=== PATIENT | female | born 1960 | race Caucasian/White ===

== ENCOUNTER 2016-04-30 13:17 | Inpatient (IN) | payer OTHER ==
[~2016-04-30] VITALS: Ht 162.6 cm; Wt 55.5 kg
[2016-04-30] VITALS (9 sets, daily range): BP systolic 118–135; BP diastolic 70–79; PULSE 78–109; RESP 16–24; O2SAT 94–99
[~2016-04-30 13:17] MED LIST: ADV250INH IH; ALBU8.5H4 IH; DOCU250C7 PO; IPRA30SP2 INH; LEV250 PO; NIC7 TD; PHE25 PO; PRE10 PO; PRE20 PO; SIN10 PO; TYLENOL W CODEINE PO
--- NOTE | 2016-04-30 14:40 | ED.REPORT ---
HPI-URI / Cough / Cold Date of Service Apr 30, 2016 ED Provider: Ramila Avila History of Present Illness: coughing, sob statrted last saturday. mid sternal pain with drinking. using tylenol, using breathing treatments. denies breathing issues had breathing meds from previous pneumonia. primary care is paulino at [facility]. 08/04 Nursing Notes Stated Complaint: SOB/PAIN IN CHEST Chief Complaint: Chest Pain Allergies: Coded Allergies: Cephalosporins (Verified Allergy, Intermediate, Rash,Itching,, 08/05/15) ibuprofen (Verified Allergy, Unknown, Swelling, 05/09/15) Scheduled Aspirin (Aspirin) 81 Mg Tablet 81 MG PO DAILY Nicotine (Nicoderm Cq 7 mg/24 hr) 1 Each Patch.td24 1 EACH TD DAILY Scheduled PRN Acetaminophen (Acetaminophen) 325 Mg Tablet 325-650 MG PO Q4H PRN PRN For Fever Ipratropium/Albuterol Sulfate (Iprat-Albut 0.5-3(2.5) mg/3 mL Inhalant Soln) 3 Ml Ampul.neb 3 ML IH Q6 PRN PRN For Shortness of Breath General Time Seen by MD: 14:31 Chief Complaint Cough, productive... (Yellow) Hx Obtained From: Patient Onset Occurred: 5 days ago Symptom Duration: Since onset Quality: Burning Past Medical History Past Medical History Notes: COPD Past Medical History Arthritis Anxiety Chronic neck pain Reports: COPD, Denies: Asthma, Diabetes mellitus Past Surgical History R hand surgery Reports: Appendectomy Reports: Tubal ligation Smoking History Current Every Day Smoker (7 cig a day for 30 years) Social History Alcohol Use: Denies alcohol use Drug Use: THC Occupation living with boyfriend, work at [employer] on medical leave at present for hand injury and neck pain 04/30/2016 Ambulatory Status Independent Review of Systems Basic Review of Systems : No dysuria, No frequency Hematologic: No bleeding, No bruising Psychiatric: Normal thought content Physical Exam Initial Vital Signs Vital Signs (First) Date Time Temp Pulse Resp B/P Pulse Ox O2 Delivery O2 Flow Rate FiO2 04/30/16 13:21 36.2 107 20 135/79 99 04/30/16 15:17 Room Air Initial VS: Reviewed, Vital signs normal Head / Eyes: Atraumatic, Normocephalic, PERRL Neck: Supple, Non-tender, Full range of motion Cardiovascular: Regular rate & rhythm, Heart sounds normal, Intact distal pulses Abdomen / GI: Soft, Non-tender, No guarding, No rebound, No distention Back: No CVA tenderness Lymphatic: No lymphadenopathy Extremities: Vascular intact, Neuro intact, No swelling, No tenderness Skin: Warm, Dry, No cyanosis Neurologic: Alert, Oriented, Nonfocal Psychiatric: Mood/affect normal, Behavior normal, Normal thought content General/Constitutional: Awake, Alert Distress / Hydration: Positive: Distress moderate Appearance / Presentation: Positive: Appears older than age ENT: Atraumatic, Airway patent, Mucous membranes moist, Pharynx NL Wheezing / Retractions: Positive: Wheeze insp/exp diffuse, Wheezing moderate Head / Eyes: Atraumatic, Normocephalic, PERRL, EOMI Cardiovascular: Heart rate NL, Regular rhythm, Heart sounds NL, No gallop Abdomen: Atraumatic, Soft, Non-tender, McBurney's non-tender Interpretation & Diagnostics Lab Results Interpretation Result Diagram: 04/30/16 1435 04/30/16 1435 Test 04/30/16 14:35 White Blood Count 11.3th/mm3 (3.8-10.1) Red Blood Count 4.62mil/mm3 (3.90-5.20) Hemoglobin 14.1g/dL (12.0-15.6) Hematocrit 42.2% (35.0-46.0) Mean Corpuscular Volume 91.3fL (81-100) Mean Corpuscular Hemoglobin 30.5pg (27.0-35.0) Mean Corpuscular Hemoglobin Concent 33.4% (32.0-37.0) Red Cell Distribution Width 13.5% (12.3-15.4) Platelet Count 227bil/L (150-400) Neutrophils (%) (Auto) 65.8% (40-74) Lymphocytes (%) (Auto) 23.2% (14-46) Monocytes (%) (Auto) 9.9% (4-12) Eosinophils (%) (Auto) 0.4% (0-5) Basophils (%) (Auto) 0.4% (0-3) Sodium Level 137mEq/L (134-144) Potassium Level 3.5mEq/L (3.5-5.2) Chloride Level 99mEq/L (97-108) Carbon Dioxide Level 23mmol/L (18-29) Blood Urea Nitrogen 10mg/dL (6-24) Creatinine 0.61mg/dL (0.57-1.00) Estimat Glomerular Filtration Rate 146mL/min (>59) Glucose Level 85mg/dL (60-99) Calcium Level 9.0mg/dL (8.5-10.1) Total Bilirubin 0.2mg/dL (0.0-1.2) Aspartate Amino Transf (AST/SGOT) 16U/L (0-50) Alanine Aminotransferase (ALT/SGPT) 14U/L (0-32) Alkaline Phosphatase 98U/L (25-150) Troponin T < 0.010ug/L (0.0-0.011) Pro-B-Type Natriuretic Peptide 71.26pg/mL (0-249) Total Protein 7.7g/dL (6.4-8.4) Albumin 4.1g/dL (3.4-5.0) Hold Lemus Top Tube Received (Received) X-Ray Chest Interpretation Chest Xray Interpretation: INDICATIONS: SHORT OF BREATH TECHNIQUE: 2 views of the chest were acquired. COMPARISON: [facility], , CHEST 1VW (PORTABLE), 09/04/2014, 22:49. [facility], CHEST 2VW, 08/20/2013, 21:02. [facility], , CHEST 2VW, 05/28/2011, 0:48. FINDINGS: Surgical changes and devices: None. Lungs and pleura: No pleural effusions or pneumothorax. Lungs are clear. Mediastinum: Mediastinal contours are normal. Heart size is normal. Bones and chest wall: No suspicious bony abnormalities. Soft tissues appear unremarkable. IMPRESSION: No acute cardiopulmonary disease process. Re-Eval/Medical Decision Med Decision/Clinical Course Med Decision/Clinical Course: 55 year old female presents to the ER for evualation of SOB with chest pain. Patient denies any underlying respiratory issues but review of her chart indicates she has a dx of COPD. Exam indicates extensive wheezing with minimal air movement. Chest x-ray is negative for infection. Patient has had 2 duo nebs and a repeat one, has had 60 mg po of prednisone. Minimally improvement if any. Patient would benefit from admission. Discussed with Dr. Grijalva. Care of patient turned over to Dr. Grijalva for admission Re-Evaluation/Progress : Time of Eval: 17:45 Re-Evaluation/Progress Note: Patient rechecked by Dr. Grijalva. Symptoms began five days ago. The patient stopped smoking six days ago. On exam the patient is still wheezing heavily. Discussed with patient x-ray and lab results, diagnosis, and plan for additional breathing treatments and probable admit. Patient agrees with plan for care and all questions were addressed. Consultation : Referral / Consult Name: Parish Zuluaga MD Consulted With: Hospitalist Call Returned at: 18:16 Job Placement Specialist: Agrees with eval, Agrees with plan, Accepts admit Note: Discussed patient's case. Counseled Regarding: Diagnosis, Lab results, Need for admission Discharge & Departure Impression: Primary Impression: COPD exacerbation Disposition: ADMITTED TO HOSPITAL Discharge Condition All VS Reviewed: Yes Condition: Stable Referrals: BENJAMÍN DUBON MD (PCP) EDSupervising Provider for APC: Donny Grijalva MD Attestation Portions of this note were transcribed by Chiara Urias. I, Dr. Grijalva, personally performed the history, physical exam, and medical decision-making; I reviewed and confirmed the accuracy of the information in the transcribed note. Signed by: Bill Simpson, 04/30/2016, 18:20 copies to: BENJAMÍN DUBON MD, Sue ARNP Apr 30, 2016 14:40 CHIRAA URIAS Apr 30, 2016 17:49
[2016-04-30 14:47] LABS: BASOPHILS % (AUTO) 0.4 % (0-3); EOSINOPHILS % (AUTO) 0.4 % (0-5); MONOCYTES % (AUTO) 9.9 % (4-12); Mean Corpuscular Hemoglobin 30.5 pg (27.0-35.0); Mean Corpuscular Volume 91.3 fL (81-100); NEUTROPHILS % (AUTO) 65.8 % (40-74); Platelet Count 227 bil/L (150-400)
[2016-04-30] MEDS ORDERED: Albuterol-Ipratropium 3 mL Inhalation Solution NEB ONE ×2 (15:10→16:25)
[2016-04-30] MEDS ORDERED: predniSONE 20 mg Tablet PO ONE (15:10)
[2016-04-30 15:14] LABS: TROPONIN T < 0.010 ug/L (0.0-0.011)
--- NOTE | 2016-04-30 15:20 | DRSVH ---
PROCEDURE: X-RAY CHEST, TWO VIEWS ([id number]) INDICATIONS: SHORT OF BREATH TECHNIQUE: 2 views of the chest were acquired. COMPARISON: [facility], , CHEST 1VW (PORTABLE), 09/04/2014, 22:49. [facility], CR, CHEST 2VW, 08/20/2013, 21:02. [facility], CR, CHEST 2VW, 05/28/2011, 0:48. FINDINGS: Surgical changes and devices: None. Lungs and pleura: No pleural effusions or pneumothorax. Lungs are clear. Mediastinum: Mediastinal contours are normal. Heart size is normal. Bones and chest wall: No suspicious bony abnormalities. Soft tissues appear unremarkable. IMPRESSION: No acute cardiopulmonary disease process. Dictated by: Nisa Leblanc MD, PhD on 04/30/2016 at 15:13 Approved by: Nisa Leblanc MD, PhD on 04/30/2016 at 15:14
[2016-04-30] MEDS ORDERED: Magnesium Sulf 2 Gm/50mL Water 2 GM in IV Premix 1 EACH IV ONE (17:40)
[2016-04-30] MEDS ORDERED: Albuterol 2.5 mg/3 mL Inhalation Solution NEB ONE (17:40)
[2016-04-30] MEDS ORDERED: Azithromycin Inj 500 MG in Dextrose 5% w/Vial Mate 250 ML IV ONE (17:45)
[2016-04-30] MEDS ORDERED: Alum-Mag Hydrox-Simeth 30 mL Suspension PO PRN (18:30)
[2016-04-30] MEDS ORDERED: IPRA3AMP IH (19:18)
[2016-04-30] MEDS ORDERED: ALBU8.5H2 INHALATION (19:19)
[2016-04-30] MEDS ORDERED: FLUT1DIS5 IH (19:19)
[2016-04-30] MEDS ORDERED: ATRINH INH (19:21)
[2016-04-30] MEDS ORDERED: NICO1PAT39 TD (19:21)
[2016-04-30] MEDS ORDERED: MONT10TA23 PO (19:21)
[2016-04-30] MEDS ORDERED: ASPI325T32 PO (19:22)
[2016-04-30] MEDS ORDERED: ACET325T51 PO (19:22)
[2016-04-30] MEDS ORDERED: ASPI-973 PO (20:08)
[2016-04-30] MEDS: Albuterol-Ipratropium 3 mL Inhalation Solution NEB PRN (20:20)
--- NOTE | 2016-04-30 22:55 | PCM.HPMED ---
Subjective Date of Service Apr 30, 2016 Primary Provider: Admitting Physician: Primary Care Physician: Jamie Vanegas MD Attending Physician: Admit Status: From the Emergency Department, Full Admit, Remote Telemetry Chief Complaint: Shortness of breathe with coughing History of Present Illness: Latricia Son is a 55 yo smoker with COPD who presents to [facility] emergency department with complaints of coughing and shortness of breathe Patient reported the shortness of breathe started last Saturday but progressive getting worst in the last few days. Associated symptoms includes mid sternal pain (exacerbated with drinking) and a productive cough of yellow sputum. No fever or chills reported. She has a nebulizer machine but did not have any Albuterol. She continues to smoke although she is cutting down significantly. No sick contacts at home and no recent travel Review of Systems: Pertinent positives as noted in HPI. All other systems were reviewed and are negative Allergies Coded Allergies: Cephalosporins (Verified Allergy, Intermediate, Rash,Itching,, 08/05/15) ibuprofen (Verified Allergy, Unknown, Swelling, 05/09/15) Home Medications None reported PMH Arthritis Anxiety Chronic neck pain COPD . Surgical History R hand surgery Appendectomy Tubal ligation Family History No history of premature coronary disease Social History Hx Alcohol Use: No Hx Substance Use: Yes (marijuana) Hx Tobacco Use: Yes (4-5 cigs/day) Smoking Status: Current Every Day Smoker Living Arrangement: with Friends/Roommate Exam Vital Signs Vital Sign - Last Date Time Temp Pulse Resp B/P Pulse Ox O2 Delivery O2 Flow Rate FiO2 04/30/16 17:49 100 24 94 Room Air 04/30/16 15:17 118/70 04/30/16 13:21 36.2 Exam General: Alert, Oriented X3, Cooperative, No acute Distress. Talking in full sentences Eyes: PERRLA, Scleral Anicteric Mouth: Mouth Normal, Mucous Membranes Moist/[place] Neck: Supple, no Thyromegaly, trachea central. Chest & Lungs: decreased breathe sounds with some wheeze Cardiovascular: Normal S1, Normal S2, No Murmurs/Rubs/Gallops, Regular Rate/ Rhythm, (No JVD, no peripheral edema) Pulses: Radial (present and equal), Dorsalis Pedi (present and equal) Abdomen: Soft, Non-tender, Non-distended, Normoactive bowel tones. Musculoskeletal: Unremarkable. Normal range of motion, no swollen or erythematous joints Extremities: No edema, no cyanosis, no clubbing. Skin: No rashes. Warm and dry, no erythematous areas Neurological: Grossly neurologically intact, Normal Speech, Sensation Intact Lymphatic: Lymph nodes Cervical and Axillary not palpable. Lab and Diagnostics Labs Laboratory Tests Test 04/30/16 14:35 White Blood Count 11.3th/mm3 (3.8-10.1) Red Blood Count 4.62mil/mm3 (3.90-5.20) Hemoglobin 14.1g/dL (12.0-15.6) Hematocrit 42.2% (35.0-46.0) Mean Corpuscular Volume 91.3fL (81-100) Mean Corpuscular Hemoglobin 30.5pg (27.0-35.0) Mean Corpuscular Hemoglobin Concent 33.4% (32.0-37.0) Red Cell Distribution Width 13.5% (12.3-15.4) Platelet Count 227bil/L (150-400) Neutrophils (%) (Auto) 65.8% (40-74) Lymphocytes (%) (Auto) 23.2% (14-46) Monocytes (%) (Auto) 9.9% (4-12) Eosinophils (%) (Auto) 0.4% (0-5) Basophils (%) (Auto) 0.4% (0-3) Sodium Level 137mEq/L (134-144) Potassium Level 3.5mEq/L (3.5-5.2) Chloride Level 99mEq/L (97-108) Carbon Dioxide Level 23mmol/L (18-29) Blood Urea Nitrogen 10mg/dL (6-24) Creatinine 0.61mg/dL (0.57-1.00) Estimat Glomerular Filtration Rate 146mL/min (>59) Glucose Level 85mg/dL (60-99) Calcium Level 9.0mg/dL (8.5-10.1) Total Bilirubin 0.2mg/dL (0.0-1.2) Aspartate Amino Transf (AST/SGOT) 16U/L (0-50) Alanine Aminotransferase (ALT/SGPT) 14U/L (0-32) Alkaline Phosphatase 98U/L (25-150) Troponin T < 0.010ug/L (0.0-0.011) Pro-B-Type Natriuretic Peptide 71.26pg/mL (0-249) Total Protein 7.7g/dL (6.4-8.4) Albumin 4.1g/dL (3.4-5.0) Hold Lemus Top Tube Received (Received) Result Diagram: 04/30/16 1435 04/30/16 1435 X-Rays, CTs and MRIs X-RAY CHEST, TWO VIEWS 04/30/16 IMPRESSION: No acute cardiopulmonary disease process. Dictated by: Nisa Leblanc MD, PhD on 04/30/2016 at 15:13 Approved by: Nisa Leblanc MD, PhD on 04/30/2016 at 15:14 Assessment & Plan Latricia Son is a 55 yo smoker with COPD who presents to [facility] emergency department with complaints of coughing and shortness of breathe 1. Acute COPD exacerbation. Present on admission. Under therapy with persistent symptoms Likely triggered by a viral respiratory infection. Also continued smoking causes continued damage to lungs. Differential diagnosis includes Pulmonary embolism but less likely with low Wells score. - continue DuoNeb PRN, need prescription for rescue inhaler prior to discharge - steroids: tapered to Prednisone 40 mg daily - continue Azithromycin PO - counseled to stop smoking - need Pulmonary follow up and Pulmonary function testing as outpatient 2. Nicotine dependence Cessation discussed and encouraged - Nicotine patch ordered - Acetaminophen as needed for mild pain/fever/headache - Bowel regimen as needed - Antiemetic as needed Patient admitted under inpatient status with expected length of stay > 2 midnights for severity of present symptoms, complexities of treatment plan and risk for adverse event . Resuscitation Status: CPR: Attempt Resuscitation Parish Zuluaga MD Apr 30, 2016 18:30
[2016-05-01] VITALS (11 sets, daily range): BP systolic 112–133; BP diastolic 67–82; PULSE 80–120; RESP 16–20; O2SAT 90–97
[2016-05-01] MEDS: Albuterol-Ipratropium 3 mL Inhalation Solution NEB PRN ×4 (00:01→13:43)
[2016-05-01] MEDS: Heparin 5,000 Unit/mL Inj SUBQ SCH ×3 (01:25→15:30)
--- NOTE | 2016-05-01 03:56 | NUR ---
Admit: pt arrived to room 3031 around 1954 from ED via stretcher; significant other at bedside. Pt ambulated self to bed. RA, tele placed, AOx3, no s/s of resp or cardiac distress. Nicotine patch placed on R shoulder. Admit completed by admit RN. Pt pleasant and cooperative with care.
--- NOTE | 2016-05-01 04:00 | NUR ---
NOC shift: Pt c/o chest pain when coughing upon arrival to floor, cough medication and Tylenol administered, no further complaints. IV replaced due to it coming out while sleeping. Pt slept most of the night, pleasant and cooperative with care.
[2016-05-01] MEDS: Ondansetron 2 mg/mL 2 mL Inj IVPUSH PRN ×2 (06:18→16:51)
[2016-05-01] MEDS ORDERED: predniSONE 10 mg Tablet PO SCH (08:30)
[2016-05-01] MEDS: oxyCODONE-Acetamin 5-325 mg Tablet PO PRN ×4 (09:02→22:03)
--- NOTE | 2016-05-01 09:07 | NUR ---
Social Work-initial assessment: Data:EMR Reviewed. Pt is a 55 y/o female who was admitted on 04/30/16 for COPD exacerbation per H&P. Pt's insurance is [employer] and PCP is Jamie Vanegas. SW met with pt at bedside, SW role explained. Pt is alert and oriented x3. Pt resides at home with her SO Darya in a single level home in [place] where she remains independent with ADLS. Pt drives and has no HH/SNF history. SW discussed DPOA/ advanced directive, pt states she has completed this, SW encouraged a copy to brought into the hospital. Pt informed SW that she recently was put on medical leave from her job and she also had a recent loss of a son. SW provided support and discussed outpt counseling resources. Pt feels like this would be helpful and beneficial to her. SW provided pt with outpt mental health resources and discussed the access line to start. Pt's SO to provide transport home at discharge. Per RN notes, pt has been up independent in her room. SW provided phone number and plan on white board in room. No anticipated discharge needs. SW will continue to follow if needs arise. Assessment:Pt who is independent at baseline. Plan:Pt to discharge home when medically stable via POV. No anticipated discharge needs. SW will continue to follow if needs arise. IRON Erickson
--- NOTE | 2016-05-01 16:36 | PCM.PNMED ---
Subjective Date of Service May 01, 2016 Subjective reports continued SOB and wheezing Exam Vital Signs Vital Sign - Last Date Time Temp Pulse Resp B/P Pulse Ox O2 Delivery O2 Flow Rate FiO2 05/01/16 13:56 36.8 94 20 122/72 90 Room Air General: Alert, Oriented X3, Cooperative, No Acute Distress Head: Normal Eyes: PERRLA, Scleral Anicteric Nose: Mucous Membr Moist/[place] Mouth: Mucous Membr Moist/[place] Neck: Supple Chest & Lungs: Chest Wall Normal, Coarse breath sounds, Other (significant bilateral insp/exp wheezes) Cardiovascular: Regular Rate/Rhythm Abdomen: Non-tender, Non-distended, Normoactive bowel tones, Soft Extremities: No cyanosis/clubbing/edma bilat Neurological: Grossly Neurologically Intact, Strength Normal 05/29 ext IVs and Medications Medications Reviewed: Medications were reviewed in detail Lab and Diagnostics Result Diagram: 04/30/16 1435 04/30/16 1435 X-Rays, CTs and MRIs X-RAY CHEST, TWO VIEWS 04/30/16 IMPRESSION: No acute cardiopulmonary disease process. Dictated by: Nisa Leblanc MD, PhD on 04/30/2016 at 15:13 Approved by: Nisa Leblanc MD, PhD on 04/30/2016 at 15:14 Assessment & Plan 55 yo smoker with history of tobacco use who denies any prior known history of COPD or asthma presents with complaints of coughing and shortness of breathe # Suspected acute COPD exacerbation. Present on admission. ongoing - check viral PCR panel - continue DuoNeb - steroids escalate to IV Solu-Medrol given significant wheezing and coarse breath sounds noted on exam - continue Azithromycin PO (day 2) - need Pulmonary follow up and Pulmonary function testing as outpatient # Nicotine dependence Cessation discussed and encouraged - Nicotine patch Dispo: 2-3 days Resuscitation Status: CPR: Attempt Resuscitation Time spent 25 min Salvatore Falcon May 01, 2016 16:36
[2016-05-01] MEDS: MethylprednisoLONE Sodium Succinate 40 mg/mL Inj IVPUSH SCH (16:51)
[2016-05-01] MEDS: Albuterol 1.25 mg/3 mL Inhalation Solution NEB PRN (17:44)
[2016-05-01] MEDS: Albuterol-Ipratropium 3 mL Inhalation Solution NEB SCH (20:09)
[2016-05-02] VITALS (8 sets, daily range): BP systolic 116–121; BP diastolic 64–76; PULSE 73–107; RESP 18–20; O2SAT 91–98
[2016-05-02] MEDS: MethylprednisoLONE Sodium Succinate 40 mg/mL Inj IVPUSH SCH ×3 (00:50→17:26)
[2016-05-02] MEDS: Heparin 5,000 Unit/mL Inj SUBQ SCH ×3 (00:50→17:26)
[2016-05-02] MEDS: Ondansetron 2 mg/mL 2 mL Inj IVPUSH PRN ×2 (00:57→10:22)
[2016-05-02] MEDS: Albuterol 1.25 mg/3 mL Inhalation Solution NEB PRN (03:25)
[2016-05-02] MEDS: Albuterol-Ipratropium 3 mL Inhalation Solution NEB SCH ×4 (06:00→19:21)
--- NOTE | 2016-05-02 06:41 | NUR ---
Pain: Pt c/o generalized/neck pain, medication administered; effective. Pt slept most of the night, pleasant and cooperative with care.
[2016-05-02 07:15] LABS: Mean Corpuscular Hemoglobin 30.5 pg (27.0-35.0); Mean Corpuscular Volume 91.8 fL (81-100)
[2016-05-02 07:33] LABS: Magnesium 2.2 mg/dL (1.6-2.6)
[2016-05-02] MEDS: oxyCODONE-Acetamin 5-325 mg Tablet PO PRN ×3 (07:56→22:34)
--- NOTE | 2016-05-02 11:06 | NUR ---
Social Work-readiness for discharge: Data:EMR reviewed pt is on day 2 of hospitalization for COPD exacerbation per H&P. Pt is not medically stable anticipate 1-2 days. Pt resides at home with her SO and has been up independent in her room. SW has provided pt with counseling resources. No other discharge needs identified. SW will continue to follow if needs arise. Assessment:Pt who is independent at baseline. Plan:Pt to discharge home when medically stable via POV. No anticipated discharge needs. SW will continue to follow if needs arise. IRON Erickson
[2016-05-02] MEDS: Polyethylene Glycol (PEG) 17 Gm Powder PO PRN (11:58)
--- NOTE | 2016-05-02 16:18 | PCM.PNMED ---
Subjective Date of Service May 02, 2016 Subjective reports continued SOB and wheezing Exam Vital Signs Vital Sign - Last Date Time Temp Pulse Resp B/P Pulse Ox O2 Delivery O2 Flow Rate FiO2 05/02/16 15:14 73 18 96 Nasal Cannula 1.00 05/02/16 05:13 36.6 116/64 Intake and Output 05/01/16 05/01/16 05/02/16 Cumulative From/Thru 15:00 23:00 07:00 04/30/16 13:21 - 05/01/16 22:07 Intake Total 350 ml 637 ml 987 ml Output Total 525 ml 125 ml 650 ml Balance -175 ml 512 ml 337 ml Intake Oral 350 ml 637 ml 987 ml Output Urine Total 525 ml 125 ml 650 ml Exam General: Alert, Oriented X3, Cooperative, No Acute Distress Head: Normal Eyes: PERRLA, Scleral Anicteric Nose: Mucous Membr Moist/[place] Mouth: Mucous Membr Moist/[place] Neck: Supple Chest & Lungs: Chest Wall Normal, Coarse breath sounds, Other (significant bilateral insp/exp wheezes) Cardiovascular: Regular Rate/Rhythm Abdomen: Non-tender, Non-distended, Normoactive bowel tones, Soft Extremities: No cyanosis/clubbing/edema bilat Neurological: Grossly Neurologically Intact, Strength Normal 4/4 ext IVs and Medications Medications Reviewed: Medications were reviewed in detail Lab and Diagnostics Result Diagram: 05/02/16 0650 05/02/16 0650 X-Rays, CTs and MRIs X-RAY CHEST, TWO VIEWS 04/30/16 IMPRESSION: No acute cardiopulmonary disease process. Dictated by: Nisa Leblanc MD, PhD on 04/30/2016 at 15:13 Approved by: Nisa Leblanc MD, PhD on 04/30/2016 at 15:14 Assessment & Plan 55 yo smoker with history of tobacco use who denies any prior known history of COPD or asthma presents with complaints of coughing and shortness of breathe # Suspected acute COPD exacerbation. Present on admission. ongoing - viral PCR panel negative - continue DuoNeb - steroids escalated to IV Solu-Medrol on 05/01/16 given significant wheezing and coarse breath sounds noted on exam - continue Azithromycin PO (day 3) - need Pulmonary follow up and Pulmonary function testing as outpatient # Nicotine dependence Cessation discussed and encouraged - Nicotine patch Dispo: 2-3 days pending improved respiratory status Resuscitation Status: CPR: Attempt Resuscitation Time spent 25 min Salvatore Falcon May 02, 2016 16:18
[2016-05-03] VITALS (9 sets, daily range): BP systolic 114–130; BP diastolic 68–78; PULSE 71–91; RESP 18–21; O2SAT 93–98
[2016-05-03] MEDS: Heparin 5,000 Unit/mL Inj SUBQ SCH ×4 (01:30→23:39)
[2016-05-03] MEDS: MethylprednisoLONE Sodium Succinate 40 mg/mL Inj IVPUSH SCH ×4 (01:30→23:39)
[2016-05-03] MEDS: Ondansetron 2 mg/mL 2 mL Inj IVPUSH PRN ×2 (02:46→19:41)
[2016-05-03] MEDS: Albuterol-Ipratropium 3 mL Inhalation Solution NEB SCH ×4 (07:43→19:47)
[2016-05-03] MEDS: Polyethylene Glycol (PEG) 17 Gm Powder PO PRN ×2 (08:54→23:09)
[2016-05-03] MEDS: oxyCODONE-Acetamin 5-325 mg Tablet PO PRN ×3 (08:56→23:08)
--- NOTE | 2016-05-03 14:41 | PCM.PNMED ---
Subjective Date of Service May 03, 2016 Subjective pt on trial off oxygen this AM during interview - states she feels mild sob, with some anxiety and difficulty swallowing. all began recently - no dyshpagia sx chronically. denies f/c/cp. pt is apparetnly quit tob 7 days ago - long hx. Exam Vital Signs Vital Sign - Last Date Time Temp Pulse Resp B/P Pulse Ox O2 Delivery O2 Flow Rate FiO2 05/03/16 12:32 80 18 96 Room Air 05/03/16 12:21 36.8 119/68 05/03/16 07:45 2.00 Intake and Output 05/02/16 05/02/16 05/03/16 Cumulative From/Thru 15:00 23:00 07:00 04/30/16 13:21 - 05/02/16 21:35 Intake Total 736 ml 1020 ml 2743 ml Output Total 150 ml 550 ml 1350 ml Balance 586 ml 470 ml 1393 ml Intake Oral 736 ml 1020 ml 2743 ml Output Urine Total 150 ml 550 ml 1350 ml # Bowel Movements 0 0 Exam General: Alert, Oriented X3, Cooperative, No Acute Distress Head: Normal Eyes: PERRLA, Scleral Anicteric Nose: Mucous Membr Moist/[place] Mouth: Mucous Membr Moist/[place] Neck: Supple Chest & Lungs: Chest Wall Normal, Coarse breath sounds,sig wheezes b/l throughout Cardiovascular: mild tachycardia, regular Abdomen: Non-tender, Non-distended, Normoactive bowel tones, Soft Extremities: No cyanosis/clubbing/edema bilat Neurological: Grossly Neurologically Intact, Strength Normal 4/4 ext IVs and Medications Medications Reviewed: Medications were reviewed in detail Lab and Diagnostics Result Diagram: 05/02/16 0650 05/02/16 0650 X-Rays, CTs and MRIs X-RAY CHEST, TWO VIEWS 04/30/16 IMPRESSION: No acute cardiopulmonary disease process. Dictated by: Nisa Leblanc MD, PhD on 04/30/2016 at 15:13 Approved by: Nisa Leblanc MD, PhD on 04/30/2016 at 15:14 Assessment & Plan 55 yo smoker with history of tobacco use who denies any prior known history of COPD or asthma presents with complaints of coughing and shortness of breath # Suspected acute COPD exacerbation. Present on admission. ongoing - viral PCR panel negative --> titrated off oxygen but significant wheezing - would benefit form 1 more day of monitoring with ambulation today - continue DuoNeb - steroids escalated to IV Solu-Medrol on 05/01/16 given significant wheezing and coarse breath sounds noted on exam - continue Azithromycin PO (day 4) - need Pulmonary follow up and Pulmonary function testing as outpatient # Nicotine dependence Cessation discussed and encouraged - Nicotine patch Dispo: possible dc tomorrow pending improved respiratory status Pain Evaluation: Adequate Pain Control GI Prophylaxis: H2 martha VTE Prophylaxis: Sub-Q Heparin (Unfractionated) Resuscitation Status: CPR: Attempt Resuscitation Time spent 40 minutes spent with eval and mgmt Guerrero Guidry DO May 03, 2016 14:40
[2016-05-03] MEDS: Famotidine Inj 20 MG in IV Premix 1 EACH IV SCH (16:29)
--- NOTE | 2016-05-03 17:27 | NUR ---
Respiratory Remained on RA entire shift. O2 varied from 91-97% RA. Productive cough, thick cream sputum. Admits to SOB when she "over does it". Encouraged cough and deep breath. Shower today. Daughter assisted in shower. Afebrile. See VSS.
[2016-05-04] VITALS (9 sets, daily range): BP systolic 128–153; BP diastolic 68–79; PULSE 62–86; RESP 20–22; O2SAT 92–96
[2016-05-04 06:29] LABS: BASOPHILS % (AUTO) 0.2 % (0-3); EOSINOPHILS % (AUTO) 0 % (0-5); MONOCYTES % (AUTO) 5.4 % (4-12); Mean Corpuscular Hemoglobin 30.1 pg (27.0-35.0); Mean Corpuscular Volume 91.6 fL (81-100); NEUTROPHILS % (AUTO) 81.4 % (40-74); Platelet Count 268 bil/L (150-400)
[2016-05-04] MEDS: Ondansetron 2 mg/mL 2 mL Inj IVPUSH PRN ×2 (06:33→15:06)
--- NOTE | 2016-05-04 06:47 | NUR ---
no BM/respiratory: pt has not had BM since 10/29/16, pt medicated with prn senna and miralax. notified order for docusate obtained and given. pt given prune juice. No results yet. pt remains on RA sats low 90's. will continue to monitor.
[2016-05-04] MEDS: Albuterol-Ipratropium 3 mL Inhalation Solution NEB SCH ×4 (07:05→20:40)
[2016-05-04] MEDS: MethylprednisoLONE Sodium Succinate 40 mg/mL Inj IVPUSH SCH (08:04)
[2016-05-04] MEDS: oxyCODONE-Acetamin 5-325 mg Tablet PO PRN ×3 (08:05→20:51)
[2016-05-04] MEDS: Heparin 5,000 Unit/mL Inj SUBQ SCH ×2 (08:05→18:10)
[2016-05-04] MEDS: Famotidine Inj 20 MG in IV Premix 1 EACH IV SCH ×2 (08:23→21:45)
--- NOTE | 2016-05-04 10:39 | PCM.PNMED ---
Subjective Date of Service May 04, 2016 Subjective - Pt seen and examined this morning. AAO x3 - States that she is feeling better. c/o mild SOB. - Will switch to oral prednisone Exam Vital Signs Vital Sign - Last Date Time Temp Pulse Resp B/P Pulse Ox O2 Delivery O2 Flow Rate FiO2 05/04/16 09:09 36.4 86 20 128/74 93 Room Air 05/03/16 07:45 2.00 Intake and Output 05/03/16 05/03/16 05/04/16 Cumulative From/Thru 15:00 23:00 07:00 04/30/16 13:21 - 05/03/16 19:53 Intake Total 250 ml 1987 ml 4980 ml Output Total 0 ml 1025 ml 2375 ml Balance 250 ml 962 ml 2605 ml Intake Oral 250 ml 1987 ml 4980 ml Output Urine Total 0 ml 1025 ml 2375 ml # Voids 5 5 # Bowel Movements 0 0 0 Exam General: Alert, Oriented X3, Cooperative, No Acute Distress Head: Normal Eyes: PERRLA, Scleral Anicteric Nose: Mucous Membr Moist/[place] Mouth: Mucous Membr Moist/[place] Neck: Supple Chest & Lungs: Chest Wall Normal, Coarse breath sounds, mild bilateral wheezing Cardiovascular: mild tachycardia, regular Abdomen: Non-tender, Non-distended, Normoactive bowel tones, Soft Extremities: No cyanosis/clubbing/edema bilat Neurological: Grossly Neurologically Intact, Strength Normal 4/4 ext IVs and Medications Medications Reviewed: Medications were reviewed in detail Lab and Diagnostics Result Diagram: 05/04/16 0610 05/04/16 0610 X-Rays, CTs and MRIs X-RAY CHEST, TWO VIEWS 04/30/16 IMPRESSION: No acute cardiopulmonary disease process. Dictated by: Nisa Leblanc MD, PhD on 04/30/2016 at 15:13 Approved by: Nisa Leblanc MD, PhD on 04/30/2016 at 15:14 Assessment & Plan 55 yo smoker with history of tobacco use who denies any prior known history of COPD or asthma presents with complaints of coughing and shortness of breath # Suspected acute COPD exacerbation. Present on admission. ongoing - viral PCR panel negative --> titrated off oxygen but significant wheezing - would benefit form 1 more day of monitoring with ambulation today - continue DuoNeb - Wheezing improved significantly. Will switch to oral steroids - continue Azithromycin PO (day 5) - need Pulmonary follow up and Pulmonary function testing as outpatient # Nicotine dependence Cessation discussed and encouraged - Nicotine patch Dispo: possible dc tomorrow pending improved respiratory status GI Prophylaxis: H2 martha VTE Prophylaxis: Sub-Q Heparin (Unfractionated) VTE Mechanical Devices: Intermittant Pneumatic CD Resuscitation Status: CPR: Attempt Resuscitation Leopoldo Skaggs MD May 04, 2016 10:39
[2016-05-04] MEDS: predniSONE 20 mg Tablet PO SCH (11:57)
--- NOTE | 2016-05-04 15:07 | NUR ---
pain/nausea pt has c/o of 7/10 plueritic inspirational chest pain. Administered 10mg percocet. pain decreases to a 4/10 upon reassessment. pt has c/o of nausea X2, administered zofran both times. pt stated upon both reassessments that her nausea completely disappears for a few hours.
[2016-05-04] MEDS: Polyethylene Glycol (PEG) 17 Gm Powder PO PRN (18:21)
[2016-05-04] MEDS ORDERED: 0.9% Sodium Chloride 100 ML ONE (21:45)
--- NOTE | 2016-05-04 23:10 | NUR ---
ISOLATION Pt taken off of droplet precautions--PCR all negative.
[2016-05-05] MEDS: Heparin 5,000 Unit/mL Inj SUBQ SCH ×2 (00:15→08:40)
--- NOTE | 2016-05-05 01:20 | NUR ---
CHEST PAIN P: Pt c/o pain in r. chest r/t inhalation and exhalation. Pt says putting pressure on a certain spot on her r. chest increases pain, which is new for her. I: Giving percocet q6h. Pt reports pain around 5/10, 4/10 is preferable, but 6/10 is what she really cannot tolerate. Because this pain is new for pt, pt requested to speak with day shift doctor about it and pt mentioned wanted CXR to evaluate. E: RN told pt that this would be passed onto day shift to discuss and pain is likely r/t rib pain from coughing so much. Hourly rounding in place.
[2016-05-05] MEDS: Ondansetron 2 mg/mL 2 mL Inj IVPUSH PRN ×2 (01:26→05:45)
[2016-05-05 05:41] VITALS: BP 140/82; PULSE 78; RESP 18; O2SAT 99
[2016-05-05] MEDS: oxyCODONE-Acetamin 5-325 mg Tablet PO PRN ×2 (05:46→12:15)
[2016-05-05 06:28] LABS: BASOPHILS % (AUTO) 0.3 % (0-3); EOSINOPHILS % (AUTO) 0.2 % (0-5); MONOCYTES % (AUTO) 11.7 % (4-12); Mean Corpuscular Hemoglobin 30.4 pg (27.0-35.0); Mean Corpuscular Volume 90.6 fL (81-100); NEUTROPHILS % (AUTO) 51.6 % (40-74); Platelet Count 292 bil/L (150-400)
[2016-05-05] MEDS: Albuterol-Ipratropium 3 mL Inhalation Solution NEB SCH ×2 (07:30→11:42)
[2016-05-05 07:32] VITALS: PULSE 74; O2SAT 97
[2016-05-05] MEDS: Famotidine Inj 20 MG in IV Premix 1 EACH IV SCH (08:39)
[2016-05-05] MEDS: Polyethylene Glycol (PEG) 17 Gm Powder PO PRN (08:40)
[2016-05-05] MEDS: predniSONE 20 mg Tablet PO SCH (08:41)
--- NOTE | 2016-05-05 08:59 | PCM.DIMED ---
Discharge Instructions Date of Service May 05, 2016 Dates of Hospitalization Apr 30, 2016 at 18:49 Discharge Diagnosis Discharge Diagnosis COPD exacerbation Diet Heart Healthy Call your provider Fever or Chills, Shortness of breath, Bleeding, Chest pain, Vomitting, Excessive diarrhea, Weakness (unilateral) Patient Instructions - Follow up with your primary physician within one week of discharge. Follow-up with PCP in: 1 week Leopoldo Skaggs MD May 05, 2016 08:58
[2016-05-05] MEDS ORDERED: PRED-508 PO (09:02)
[2016-05-05] MEDS ORDERED: ACET1TAB12 PO (09:02)
--- NOTE | 2016-05-05 09:05 | PCM.DC.MED ---
Discharge Summary Date of Service May 05, 2016 Dates of Hospitalization Date of Hospital Admission Apr 30, 2016 at 18:49 Date of Discharge: May 05, 2016 Providers: Admitting Physician: Parish Zuluaga MD Primary Care Physician: Jamie Vanegas MD Attending Physician: Parish Zuluaga MD Diagnosis at Time of Discharge Diagnosis at Time of Discharge COPD exacerbation Procedures XRay, CTs & MRIs X-RAY CHEST, TWO VIEWS 04/30/16 IMPRESSION: No acute cardiopulmonary disease process. Dictated by: Nisa Leblanc MD, PhD on 04/30/2016 at 15:13 Approved by: Nisa Leblanc MD, PhD on 04/30/2016 at 15:14 Brief History Latricia Son is a 55 yo smoker with COPD who presents to [facility] emergency department with complaints of coughing and shortness of breathe Patient reported the shortness of breathe started last Saturday but progressive getting worst in the last few days. Associated symptoms includes mid sternal pain (exacerbated with drinking) and a productive cough of yellow sputum. No fever or chills reported. She has a nebulizer machine but did not have any Albuterol. She continues to smoke although she is cutting down significantly. No sick contacts at home and no recent travel Hospital Course 55 yo smoker with history of tobacco use who denies any prior known history of COPD or asthma presents with complaints of coughing and shortness of breath # Suspected acute COPD exacerbation. Present on admission. ongoing - viral PCR panel negative --> titrated off oxygen but significant wheezing - would benefit form 1 more day of monitoring with ambulation today - continue DuoNeb - Treated with IV steroids which was then switched to oral prednisone. - Will discharge on five more days of prednisone 40 mg - she finished five days course of Azithromycin - need Pulmonary follow up and Pulmonary function testing as outpatient # Nicotine dependence Cessation discussed and encouraged - Nicotine patch Exam Vital Signs (Last) Date Time Temp Pulse Resp B/P Pulse Ox O2 Delivery O2 Flow Rate FiO2 05/05/16 07:32 74 97 Room Air 05/05/16 05:41 36.8 18 140/82 05/03/16 07:45 2.00 Exam General: Alert, Oriented X3, Cooperative, No Acute Distress Head: Normal Eyes: PERRLA, Scleral Anicteric Nose: Mucous Membr Moist/[place] Mouth: Mucous Membr Moist/[place] Neck: Supple Chest & Lungs: Air entry bilaterally equal. No wheezing. Cardiovascular: mild tachycardia, regular Abdomen: Non-tender, Non-distended, Normoactive bowel tones, Soft Extremities: No cyanosis/clubbing/edema bilat Neurological: Grossly Neurologically Intact, Strength Normal 05/29 ext Test 04/30/16 14:35 05/02/16 06:50 05/05/16 05:50 Total Bilirubin 0.2mg/dL (0.0-1.2) Aspartate Amino Transf (AST/SGOT) 16U/L (0-50) Alanine Aminotransferase (ALT/SGPT) 14U/L (0-32) Alkaline Phosphatase 98U/L (25-150) Troponin T < 0.010ug/L (0.0-0.011) Pro-B-Type Natriuretic Peptide 71.26pg/mL (0-249) Total Protein 7.7g/dL (6.4-8.4) Albumin 4.1g/dL (3.4-5.0) Hold Lemus Top Tube Received (Received) Magnesium Level 2.2mg/dL (1.6-2.6) White Blood Count 11.4th/mm3 (3.8-10.1) Red Blood Count 4.77mil/mm3 (3.90-5.20) Hemoglobin 14.5g/dL (12.0-15.6) Hematocrit 43.2% (35.0-46.0) Mean Corpuscular Volume 90.6fL (81-100) Mean Corpuscular Hemoglobin 30.4pg (27.0-35.0) Mean Corpuscular Hemoglobin Concent 33.6% (32.0-37.0) Red Cell Distribution Width 13.4% (12.3-15.4) Platelet Count 292bil/L (150-400) Neutrophils (%) (Auto) 51.6% (40-74) Lymphocytes (%) (Auto) 32.2% (14-46) Monocytes (%) (Auto) 11.7% (4-12) Eosinophils (%) (Auto) 0.2% (0-5) Basophils (%) (Auto) 0.3% (0-3) Sodium Level 140mEq/L (134-144) Potassium Level 4.0mEq/L (3.5-5.2) Chloride Level 101mEq/L (97-108) Carbon Dioxide Level 26mmol/L (18-29) Blood Urea Nitrogen 21mg/dL (6-24) Creatinine 0.87mg/dL (0.57-1.00) Estimat Glomerular Filtration Rate 97mL/min (>59) Glucose Level 85mg/dL (60-99) Calcium Level 8.9mg/dL (8.5-10.1) Discharge Medications Discharge Medications Aspirin (Aspirin) 81 Mg Tablet 81 MG PO DAILY (Reported) Nicotine (Nicoderm Cq 7 mg/24 hr) 1 Each Patch.td24 1 EACH TD DAILY (Reported) Prednisone (Deltasone) 20 Mg Tablet 40 MG PO DAILY Prescribed by: LEOPOLDO GOLDMAN MD As needed Acetaminophen (Acetaminophen) 325 Mg Tablet 325-650 MG PO Q4H PRN PRN For Fever (Reported) Acetaminophen/Codeine 300-30mg (Tylenol/Codeine #3) 1 Each Tablet 1 TABLET PO BID PRN PRN Pain Prescribed by: LEOPOLDO GOLDMAN MD Ipratropium/Albuterol Sulfate (Iprat-Albut 0.5-3(2.5) mg/3 mL Inhalant Soln) 3 Ml Ampul.neb 3 ML IH Q6 PRN PRN For Shortness of Breath (Reported) Followup Plan Discharge Diet: Heart Healthy Patient Instructions - Follow up with your primary physician within one week of discharge. Follow-up with PCP in: 1 week Leopoldo Goldman MD May 05, 2016 09:05
--- NOTE | 2016-05-05 10:20 | NUR ---
Social Work- discharge: Data:EMR reviewed pt is on day 5 of hospitalization for COPD exacerbation per H&P. Pt ready to discharge home today. Pt resides at home with her SO and has been up independent in her room. SW has provided pt with counseling resources. No discharge needs identified. All updated and agreeable to plan. Assessment:Pt who is independent at baseline. Plan:Pt to discharge home today via POV. No discharge needs identified. All updated and agreeable to plan. IRON Erickson
[2016-05-05 11:43] VITALS: PULSE 75; RESP 18; O2SAT 98
--- NOTE | 2016-05-05 12:25 | NUR ---
Discharge Pt discharged at this time, all belongings gathered and returned to pt. IV D/Cd intact, VSS, medicated for pain prior to discharge. Hard copy of new scripts given to pt to fill. Discharge packet printed and reviewed with pt. Pt taken from [facility] in wheelchair by this RN to front entrance. Pt to be transported home in private vehicle driven by SO.
== END 2016-05-05 12:38 | disposition home or self-care (01) | DRG 140 ==
LOC: SED 13:17 → OBSVTOIN 18:49 → MPC 18:49
PROVIDERS: ADMIT Hospitalist; ATTEND Hospitalist
DX: J44.1 Chronic obstructive pulmonary disease with (acute) exacerbation (principal); F17.210 Nicotine dependence, cigarettes, uncomplicated; R00.0 Tachycardia, unspecified